=== PATIENT | female | born 1945 | race Caucasian/White ===

== ENCOUNTER 2020-08-11 17:11 | Emergency (ER) | payer MEDICARE, BC, SELFPAY ==
[2020-08-11 18:08] VITALS: BP 136/78; PULSE 88; RESP 19; TEMP 36.8; O2SAT 99; BMI 29.6
--- NOTE | 2020-08-11 18:47 | HMH.EDUTC ---
[facility] Disposition Clinical Impression: Laceration Disposition: Home, Self-Care Condition on Discharge: Good Instructions: How to Care for a Laceration After Repair, Laceration Repair, DI for Laceration Repair -- Simple Additional Instructions: Suture instructions: You have required stitches today. Please read the following instructions so you know how to care for them: 1. Keep wound area dry for the first 24 hours. 2 May clean gently with mild soap and water, after 48 hours to prevent crusting over suture knots. 3. You may shower if your provider gives permission but do not take a bath until the skin is healed.. 4. Never leave a wet dressing or Band-Aid on your stitches as this allows bacteria to reach the area and may cause infection. Band-aids can cause the wound to sweat and not recommended to wear for long periods of time Watch for signs of infection: Increasing redness, tenderness or warmth around the suture site Unusual swelling around the site Appearance of pus around each suture or any red streaks Fever If you develop any of the above signs or symptoms of infection, Follow up with Family Physician immediately 5. Suture removal in _7-10___days 6. Return to [facility] or follow up with family doctor for removal. This can be done by any medical provider during regular hours on Thursday through Thursday, by appointment Referrals: Nathan Barth MD [Primary Care Provider] - As needed Time of Disposition: 18:52 Medical Decision Making - Ernesto Inquiry Pt receiving controlled substance: No Ernesto was queried for this patient: No Vital Signs: 08/11/20 18:08 Temperature 98.2 F Temperature Source Oral Pulse Rate [Right] 88 Respiratory Rate 19 Blood Pressure [Right Arm] 136/78 Blood Pressure Mean [Right Arm] 97 Blood Pressure Source [Right Arm] Automatic Cuff 02 Sat by Pulse Oximetry 99 Orders (Tests/Meds): ED MEDICATIONS Discontinued Medications Generic Name Dose Route Start Last Admin Trade Name Freq PRN Reason Stop Dose Admin Lidocaine HCl 5 ml 08/11/20 18:35 08/11/20 18:36 Lidocaine 1% 5ml Pf Vial IJ 08/11/20 18:36 5 ml ONCE ONE Administration Tetanus/Reduced Diphtheria/Acell Pertussis 0.5 ml 08/11/20 18:32 08/11/20 18:40 Tet/Diphth/Pert-Adult 0.5ml Syringe IM 08/11/20 18:33 0.5 ml .ONCE ONE Administration [facility] HPI - General Stated complaint: AO [id number] lac L Hand Time Seen by Provider: 08/11/20 18:30 Mode of Arrival: Ambulatory Source of Information: Patient Limitations: No Limitations Description of Symptoms (Recalled from Triage Doc. by RN): pt has a lac on her L hand between the base of her thumb and index finger. the lac was caused by trimming arlene while tending to her bushes. HEENT Symptoms (Recalled from RN notes): No Resp Symptoms (Recalled from RN notes): No Skin Symptoms (Recalled from RN notes): Yes (L hand superficial lac) MS Symptoms (Recalled from RN notes): No Functional Status (Recalled from RN notes): na - History of Present Illness Provider Complaint: Patient state that she was trimming bushes at home when she accidently cut herself on the base of her left thumb just above her wrist State that her daughter looked at it and thought it may need stiches so she came in - Related Data Home Medications Medication Instructions Recorded Confirmed azelastine-fluticasone 137 mcg-50 1 spray INTRANASAL BID 02/05/19 02/05/19 mcg/spray nasal spray montelukast 10 mg tablet 10 mg PO QPM 02/05/19 02/05/19 Previous Rx's Medication Instructions Recorded lelaydtvfzcvncv-heyvzuuvwcqoafa-BP 10 ml PO Q4-6H PRN #220 ml 02/05/19 2 mg-30 mg-10 mg/5 mL oral syrup methylprednisolone 4 mg tablets in See Rx Instructions PO PER PKG DIR 02/05/19 a dose pack #21 tab levoFLOXacin [Levaquin 500mg 500 mg PO DAILY #7 tab 06/26/19 tab] Allergies Allergy/AdvReac Type Severity Reaction Status Date / Time amoxicillin [AMOXICILLIN] Allergy Mild Verified
[2020-08-11 19:40] VITALS: BP 000/00; PULSE 0; RESP 19; TEMP 37
== END 2020-08-11 19:40 | disposition home or self-care (01) ==
PROVIDERS: Emergency Provider Nurse Practitioner; PCP Family Medicine
DX: S61.412A Laceration without foreign body of left hand, initial encounter (principal); W27.1XXA Contact with garden tool, initial encounter; Y92.017 Garden or yard in single-family (private) house as the place of occurrence of the external cause; Z23 Encounter for immunization
CPT/HCPCS: 12001; G0463; 90715; 99202

== ENCOUNTER → 2021-02-20 15:08 | Outpatient (CLI) | payer MEDICARE, BC, SELFPAY ==
--- NOTE | 2021-02-20 15:14 | XR_ITS ---
PROCEDURE: XR HAND LT MIN 3V CLINICAL INDICATION: PAIN IN LT THUMB COMPARISON: No exams were available for comparison FINDINGS: No fracture or dislocation. No lytic or blastic change. There is normal mineralization. Minimal osteoarthritic change at the 1st carpal metacarpal junction and at the interphalangeal joint of the thumb Other findings:None. IMPRESSION: Minimal osteoarthritic changes Dictated by: Juice Schuler MD 02/20/2021 16:28 Juice Schuler MD in [place] 02/20/2021 16:28
--- NOTE | 2021-02-20 15:14 | XR_ITS ---
PROCEDURE: XR FINGER LT MIN 2V CLINICAL INDICATION: PAIN IN LT THUMB COMPARISON: No exams were available for comparison FINDINGS: No fracture or dislocation. No lytic or blastic change. There is normal mineralization. Minimal osteoarthritic changes of the interphalangeal joint. Mild osteoarthritis also at the 1st carpal metacarpal junction. Other findings:None. IMPRESSION: Mild osteoarthritic change Dictated by: Juice Schuler MD 02/20/2021 16:27 Juice Schuler MD in [place] 02/20/2021 16:27
== END ==
PROVIDERS: PCP Family Medicine; Visit Provider Family Medicine
DX: M79.645 Pain in left finger(s) (principal)
CPT/HCPCS: 73130; 73140

== ENCOUNTER 2021-03-29 08:24 | Emergency (ER) | payer MEDICARE, BC, SELFPAY ==
[2021-03-29 08:25] VITALS: BP 165/113; PULSE 83; RESP 20; TEMP 36.6; O2SAT 98; BMI 28.4
[2021-03-29 08:46] LABS: Microscopic, Urine URINE MICROSCOPIC (MICROSCOPIC)
--- NOTE | 2021-03-29 08:59 | HMH.EDGENADL ---
ED Disposition Clinical Impression: Hematuria Qualifiers: Hematuria type: unspecified type Qualified Code(s): R31.9 - Hematuria, unspecified Disposition: Home, Self-Care Condition on Discharge: Good Additional Instructions: Take Levaquin as prescribed. Call Dr. Stokes's office and make appointment to be seen within 1 week. Prescriptions: levoFLOXacin [Levaquin 500mg tab] 500 mg PO DAILY #7 tab Transmission Status: Pending to [facility] Referrals: Nathan Barth MD [Primary Care Provider] - - Critical Care Critical Care Time: No Attestation: On 03/29/21, the high probability of a clinically significant, sudden or life threatening deterioration of the following system(s) required my full and direct attention, intervention and personal management. The time I documented below is in addition to time spent performing reported procedures but includes the following listed in this critical care notation. Medical Decision Making - Medical Records Medical records reviewed: Yes: I reviewed the patient's medical records. MR Comment: Reviewed UTC note from visit 06/01/2020. Diagnosed with cystitis and hematuria and treated with Bactrim. Reviewed emergency department note from visit 06/25/2020. Diagnosed with cystitis. Noted to have hematuria at that time. Treated with Levaquin. CT scan of abdomen and pelvis showed signs of cystitis. Urine cultures from both of these visits were negative. - Ernesto Inquiry Pt receiving controlled substance: No Vital Signs: 03/29/21 08:25 Temperature 97.8 F Temperature Source Oral Pulse Rate [Radial] 83 Respiratory Rate 20 Blood Pressure [Right Arm] 165/113 H Blood Pressure Mean [Right Arm] 130 Blood Pressure Position [Right Arm] Sitting 02 Sat by Pulse Oximetry 98 Oxygen Delivery Method Room Air - Lab Data Lab Results 03/29/21 08:30: Urine Color Red, Urine Appearance Turbid, Urine pH 6.0, Ur Specific [place] 1.025, Urine Protein 3+, Urine Glucose (UA) Negative, Urine Ketones Negative, Urine Blood 3+, Urine Nitrate Negative, Urine Bilirubin Negative, Urine Urobilinogen 0.2, Ur Leukocyte Esterase Negative, Urine RBC Tntc, Ur Squamous Epith Cells 10-20 03/29/21 08:48: WBC 7.9, RBC 4.96, Hgb 14.0, Hct 44.7, MCV 90.0, MCH 28.1, MCHC 31.2 L, RDW 13.7, Plt Count 232, MPV 8.5, Neut % (Auto) 56.8, Lymph % (Auto) 33.6, [place] % (Auto) 5.1, Eos % (Auto) 3.0, Baso % (Auto) 1.5, Neut # (Auto) 4.5, Lymph # (Auto) 2.7, [place] # (Auto) 0.4, Eos # (Auto) 0.2, Baso # (Auto) 0.1 03/29/21 08:48: Sodium 141, Potassium 4.2, Chloride 105, Carbon Dioxide 28, Anion Gap 12.2, BUN 11, Creatinine 0.80, Estimated Creat Clear 59, Estimated GFR 70, Est GFR ( Amer) 84, Glucose 109 H, Calcium 9.6, Total Bilirubin 0.4, AST 33, ALT 16, Alkaline Phosphatase 106, Total Protein 8.0, Albumin 4.3, Globulin 3.7 H, Albumin/Globulin Ratio 1.2 Result diagrams: 03/29/21 08:48 03/29/21 08:48 Orders (Tests/Meds): ED MEDICATIONS Generic Name Dose Route Start Last Admin Trade Name Freq PRN Reason Stop Dose Admin Levofloxacin/Dextrose 750 mg in 150 mls @ 100 mls/hr 03/29/21 09:45 03/29/21 09:40 Levofloxacin 750mg/150ml Premix IV 04/12/21 09:44 100 mls/hr Q24H BERT Administration Discontinued Medications Generic Name Dose Route Start Last Admin Trade Name Freq PRN Reason Stop Dose Admin Sodium Chloride 1,000 mls @ 999 mls/hr 03/29/21 09:00 03/29/21 09:04 Sod Chlor 0.9% 1000ml Bag IV 03/29/21 10:00 999 mls/hr .Q1H1M BERT Administration Iopamidol 75 ml 03/29/21 09:59 03/29/21 10:00 Iopamidol-370 (76%);100ml Bottle IV 03/29/21 10:00 75 ml ONCE ONE Administration Sodium Chloride 10 ml 03/29/21 09:59 03/29/21 10:00 Sodium Chloride 0.9% 10ml Syr (Rad Only) IV 03/29/21 10:00 10 ml ONCE ONE Administration - CT Data CT Scan: Abdomen, Pelvis Time Received: 10:[address] Reviewed: Yes: I have viewed the radiologist's interpretation Findings Narrative: PROCEDURE
[2021-03-29 09:03] LABS: Appearance,Urine TURBID (Clear); Bilirubin,Urine Negative (Negative); Blood, Urine 3+ (Negative); Color,Urine RED (Yellow); Glucose,Urine (UA) Negative (Negative); Ketones,Urine Negative (Negative); Leukocyte Esterase,Urine Negative (Negative); Nitrate,Urine Negative (Negative); Protein,Urine 3+ (Negative); Specific Gravity, Urine 1.025 (1.005-1.030); Urobilinogen,Urine 0.2 EU/dl (0.2)
[2021-03-29 09:12] LABS: RBC,Urine TNTC #/hpf (0-3)
[2021-03-29 09:15] LABS: Chloride 105 mmol/L (98-107); Potassium 4.2 mmoL/L (3.5-5.1); Sodium 141 mmol/L (136-145)
[2021-03-29 09:17] LABS: Alanine Aminotransferase 16 U/L (12-78); Aspartate Amino Transferase 33 U/L (14-36); Blood Urea Nitrogen 11 mg/dl (7-17); Creatinine Clearance Estimated 59 mL/min (50-200); Estimated Glomerular Filt Rate 70 ml/min (>60); GFR (African American) 84 ML/MIN (>60)
[2021-03-29 09:18] LABS: Albumin Level 4.3 g/dl (3.5-5.0); Albumin/Globulin Ratio 1.2 (1.1-1.8); Alkaline Phosphatase 106 U/L (38-126); Anion Gap 12.2 mEq/L (5-15); Basophils # 0.1 K/mm3 (0-0.2); Basophils % 1.5 % (0.1-2.0); Bilirubin,Total 0.4 mg/dl (0.2-1.3); Calcium 9.6 mg/dl (8.4-10.2); Carbon Dioxide 28 mmol/L (22.0-30.0); Eosinophils # 0.2 K/mm3 (0.0-0.4); Globulin 3.7 g/dL (1.3-3.2); Glucose 109 mg/dl (74-100); Hematocrit 44.7 % (37.0-47.0); Lymphocytes # 2.7 K/mm3 (0.7-4.5); Lymphocytes % 33.6 % (10-50); Mean Corpuscular HGB Conc 31.2 g/dL (31.8-35.4); Mean Corpuscular Hemoglobin 28.1 pg (27.0-31.2); Mean Platelet Volume 8.5 fl (7.4-10.4); Monocytes # 0.4 K/mm3 (0.1-1.0); Monocytes % 5.1 % (1.7-9.3); Neutrophils # 4.5 K/mm3 (1.8-7.8); Neutrophils % 56.8 % (37.0-80.0); Platelet Count 232 K/mm3 (142-424); Red Blood Count 4.96 M/mm3 (4.20-5.40); Red Cell Distribution Width 13.7 % (11.5-17.5); White Blood Count 7.9 K/mm3 (4.8-10.8)
--- NOTE | 2021-03-29 09:30 | PC.NURSE ---
left message with OR staff for Dr. Stokes to return call to ER
--- NOTE | 2021-03-29 09:32 | PC.NURSE ---
on the phone with
--- NOTE | 2021-03-29 09:36 | CT_ITS ---
PROCEDURE: CT ABDOMEN PELVIS W CON CLINICAL INDICATION: hematuria COMPARISON: CT CT ABDOMEN PELVIS WO CON from 06/26/2019 TECHNIQUE: IV Contrast: 75ML Isovue 370 Oral Contrast None Axial images obtained with sagittal and coronal reformats. All CT scans at the facility use one or more dose reduction, viz: automated exposure control, ma/kV adjustment per patient size (including targeted exams where dose is matched to indication, i.e. head), or iterative reconstruction technique. FINDINGS: LOWER THORAX: No acute finding. Coronary artery calcifications. ABDOMEN & PELVIS: 5 mm hypodensity segment 7 of the liver nonspecific too small to categorize. Mild fatty liver. No radiopaque gallstones. The spleen and adrenal glands and pancreas have an unremarkable appearance. No renal or ureteral calculi. No hydronephrosis or renal mass. Unremarkable appendix. No intestinal obstruction or free air. There is colonic diverticulosis. No evidence of diverticulitis. There is some mild asymmetry with fullness of the soft tissues in the left para vaginal region. This is of uncertain clinical significance. Correlation with physical exam suggested. Unremarkable appearing urinary bladder. Small umbilical hernia containing fat. Degenerative changes are present involving the hips. IMPRESSION: 1. No acute finding. No evidence of renal or ureteral calculi 2. Small slight asymmetric increased soft tissue density in the left para vaginal region. This is of questionable clinical significance. Correlation with physical exam needed. Follow-up CT may confirm stability. Dictated by: Juice Schuler MD 03/29/2021 10:19 Juice Schuler MD in [place] 03/29/2021 10:19
[2021-03-29 10:56] VITALS: BP 155/77; PULSE 78; RESP 16; TEMP 36.6; O2SAT 98
== END 2021-03-29 10:58 | disposition home or self-care (01) ==
PROVIDERS: Emergency Provider Emergency Medicine; PCP Family Medicine
DX: N30.01 Acute cystitis with hematuria (principal); Z88.1 Allergy status to other antibiotic agents
CPT/HCPCS: 74177; 80053; 81001; 85025; 96365; 96367; 96375; 99283; J1956; Q9967

== ENCOUNTER → 2021-04-24 13:42 | Outpatient (CLI) | payer MEDICARE, BC, SELFPAY | PROVIDERS: PCP Family Medicine; Visit Provider Urology | DX: N39.0 Urinary tract infection, site not specified (principal); R31.9 Hematuria, unspecified; Z01.812 Encounter for preprocedural laboratory examination; Z11.52 Encounter for screening for COVID-19 | CPT/HCPCS: C9803; U0003; U0005 ==

== ENCOUNTER 2021-04-26 07:55 | Day surgery (SDC) | payer MEDICARE, BC, SELFPAY ==
[2021-04-23 14:59] VITALS: BMI 29.1
[2021-04-26 08:07] VITALS: BP 155/66; PULSE 93; RESP 18; TEMP 36.1; O2SAT 96
[2021-04-26 09:32] VITALS: BP 164/76; PULSE 73; RESP 16; TEMP 36.2; O2SAT 95
--- NOTE | 2021-04-26 13:00 | P.OP_ITS ---
Date of procedure: 04/26/21 Pre-op Diagnosis:: Gross hematuria Post-op Diagnosis:: Gross hematuria Procedure performed:: Cystoscopy Surgeon:: Mario Stokes MD Anesthesia: local Estimated blood loss (mL): 0 Clinical Note:: 76-year-old white female with the several month history of the intermittent gross hematuria. Cultures have been negative. CT scan unremarkable. She pre sents for cystoscopy and vaginal examination. Operative findings:: Bladder mucosa was normal. The bladder neck was very vascular and some frondular elements were present that the bladder neck. These did not bleed with instrumentation but looked like they could bleed easily. Operative note:: Patient taken to the operating suite after informed consent was obtained. On the stretcher she was placed in the frog-leg position and prepped and draped in the standard surgical fashion. 2% lidocaine placed into the urethra after 5 minutes the flexible cystoscope introduced into the urethral meatus and Passed into the bladder without difficulty and the bladder examined in a systematic fashion. There was no evidence of mucosal abnormalities, stones, diverticula, trabeculation. The ureteral orifices were in their normal anatomic position with clear efflux of urine. Scope was retroflexed showing no abnormalities around the bladder neck. At the bladder neck however there were some mucosal fronds in the proximal part of the urethra was very vascular. Instrumentation did not result in any obvious bleeding. The rest of the urethra was normal. Scope removed patient tolerated well. Vaginal examination was performed and there is no evidence of any suspicious abnormalities. The CT scan had shown a left paravaginal mass. We discussed the cystoscopy findings today and she was reassured there is no evidence of any suspicious abnormalities. I discussed that the intermittent bleeding could be from the frondular elements at the bladder neck. I asked her to return if her hematuria persists as you could be some ureteral origin and ureteroscopy under anesthesia would be indicated. If ureteroscopy was negative we could cauterize the frondular elements at the bladder neck. Condition: stable Disposition: same day Specimens:: None Complications:: None
== END 2021-04-26 09:43 | disposition home or self-care (01) ==
LOC: OUTP 07:57
PROVIDERS: PCP Family Medicine; Visit Provider Urology
DX: R31.0 Gross hematuria (principal); Z88.1 Allergy status to other antibiotic agents; Z88.8 Allergy status to other drugs, medicaments and biological substances; Z79.899 Other long term (current) drug therapy; M19.90 Unspecified osteoarthritis, unspecified site; Z82.49 Family history of ischemic heart disease and other diseases of the circulatory system; Z82.3 Family history of stroke
CPT/HCPCS: 52000

== ENCOUNTER 2024-02-12 15:10 | Outpatient (CLI) | payer MEDICARE, BC, SELFPAY ==
--- NOTE | 2024-02-12 15:17 | XR_ITS ---
PROCEDURE INFORMATION: Exam: XR Left Knee Exam date and time: 02/12/2024 3:20 PM Age: 78 years old Clinical indication: Pain; Knee; Left; Additional info: Pain since November TECHNIQUE: Imaging protocol: Radiologic exam of the left knee. Views: 3 views. COMPARISON: No relevant prior studies available. FINDINGS: Bones/joints: No acute fracture or dislocation. Mild medial compartment joint space narrowing and osteophyte formation. Sharpening of the medial tibial spine. Soft tissues: Normal. IMPRESSION: Mild medial compartment osteoarthritis.
== END 2024-02-12 23:59 | disposition home or self-care (01) ==
LOC: RAD 15:13
PROVIDERS: PCP Nurse Practitioner; Visit Provider Nurse Practitioner
DX: M25.562 Pain in left knee (principal)
CPT/HCPCS: 73562

== ENCOUNTER 2024-05-11 13:27 | Outpatient (CLI) | payer MEDICARE, BC, SELFPAY ==
--- NOTE | 2024-05-11 13:33 | CT_ITS ---
FINAL REPORT TECHNIQUE: Thin section axial images were obtained through the left lower extremity without contrast. Reconstruction images were obtained from the axial data. Exam was performed using dose reduction technique. CLINICAL HISTORY: LEFT KNEE PAIN COMPARISON: None FINDINGS: There is no acute fracture or dislocation. No acute osseous abnormality of the left knee is identified. There is mild degenerative joint disease. The quadriceps and patellar tendons appear intact. There is no significant joint effusion. The remaining soft tissues are without acute abnormality. IMPRESSION: No acute abnormality of the left knee. Consider MRI if clinical concern persists. Reviewed, Interpreted and Dictated by Marybeth Malave MD Transcribed by Rosette Donohue Authenticated and [facility]
== END 2024-05-11 23:59 | disposition home or self-care (01) ==
LOC: RAD 13:28
PROVIDERS: PCP Nurse Practitioner; Visit Provider Nurse Practitioner
DX: M25.562 Pain in left knee (principal)
CPT/HCPCS: 73700

== ENCOUNTER 2024-07-21 15:12 | Emergency (ER) | payer MEDICARE, SELFPAY ==
[2024-07-21] VITALS (8 sets, daily range): BP systolic 131–157; BP diastolic 76–83; PULSE 79–93; RESP 16–23; TEMP 36.6–36.8; O2SAT 91–95; BMI 25.0
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
[2024-07-21] MEDS: 0.9 % SODIUM CHLORIDE 50 ML VIAL IV ×2 (16:03)
[2024-07-21] MEDS: IOPAMIDOL-370 (76%);100ML BOTTLE 100 ML IV (16:03)
[2024-07-21] MEDS: SODIUM CHLORIDE 0.9% 10ML SYR (RAD ONLY) 10 ML IV ×2 (16:03→16:04)
[2024-07-21] MEDS: IOPAMIDOL-370 (76%);100ML BOTTLE 60 ML IV (16:04)
--- NOTE | 2024-07-21 16:13 | ECG_ITS ---
APPROVED REPORT Exam: Resting ECG HR:86 bpm ECG Measurements Heart Rate 86 AXES AR 197 P 69 QRSd 81 QRS 6 QT 369 T 72 QTc 413 Conclusion SINUS RHYTHM INFERIOR MYOCARDIAL INFARCTION , PROBABLY OLD [40+ ms Q WAVE AND/OR ST/T ABNORMALITY IN II/aVF] ABNORMAL ECG UNCONFIRMED REPORT Electronically signed by : Mann Langley, 07/21/2024 22:57:34
[2024-07-21] MEDS: FENTANYL 100MCG/2ML VIAL 50 MCG IV ×2 (16:19→18:46)
[2024-07-21] MEDS: LACTATED RINGERS 1000ML 1,000 ML 999 ML IV (16:19)
[2024-07-21] MEDS: ONDANSETRON 4MG/2ML VIAL 4 MG IV (16:19)
--- NOTE | 2024-07-21 16:19 | PC.NURSE ---
called lab and respitory on vbg sent
[2024-07-21 16:25] LABS: Basophils # 0.1 K/mm3 (0-0.2); Basophils % 0.6 % (0.1-2.0); Eosinophils # 0.1 Kmm3 (0.0-0.4); Eosinophils % 0.7 % (0.1-12.0); Hematocrit 35.1 % (37.0-47.0); Hemoglobin 11.2 g/dL (12.2-16.2); Lymphocytes # 2.7 K/mm3 (0.7-4.5); Lymphocytes % 20.3 % (10-50); Mean Corpuscular HGB Conc 31.9 g/dL (31.8-35.4); Mean Corpuscular Hemoglobin 27.9 pg (27.0-31.2); Mean Corpuscular Volume 87.3 fl (81-99); Mean Platelet Volume 10.3 fl (7.4-10.4); Monocytes # 0.7 K/mm3 (0.1-1.0); Monocytes % 5.4 % (1.7-9.3); Neutrophils # 9.4 K/mm3 (1.8-7.8); Neutrophils % 70.5 % (37.0-80.0); Nucleated Red Blood Cells # 0 10^3/uL; Nucleated Red Blood Cells % 0 %; Platelet Count 168 K/mm3 (142-424); Red Blood Count 4.02 M/mm3 (4.20-5.40); Red Cell Distribution Width 13.7 % (11.5-17.5); Red Cell Distribution Width-SD 44.3 fL; White Blood Count 13.3 K/mm3 (4.8-10.8)
[2024-07-21 16:26] LABS: Lactate Venous 1.5 mmol/L (0.4-2.0); VBG Base Excess 1.7 mmol/L (-2.4-2.3); VBG HCO3 26.6 mmol/L (23-30); VBG Oxygen Saturation 65.6 % (50-70); VBG PCO2 44.2 mmol/L (35-51); VBG PO2 33.7 mmol/L (28-40); VBG Total CO2 27.9 mmol/L (23-27)
[2024-07-21 16:53] LABS: Activated Partial Thrombo Time 26.2 seconds (22.8-30.6); INR 0.97 (0.9-1.1); Prothrombin Time 10.9 seconds (10.1-12.5)
[2024-07-21 16:55] LABS: Alanine Aminotransferase 23 U/L (12-78); Albumin Level 3.2 g/dl (3.5-5.0); Alkaline Phosphatase 87 U/L (38-126); Anion Gap 9.3 mEq/L (5-15); Aspartate Amino Transferase 48 U/L (14-36); Bilirubin,Total 0.5 mg/dl (0.2-1.3); Blood Urea Nitrogen 17 mg/dl (7-17); Calcium 9.2 mg/dl (8.4-10.2); Carbon Dioxide 28 mmol/L (22.0-30.0); Chloride 101 mmol/L (98-107); Creatine Kinase 767 U/L (30-135); Creatinine Clearance Estimated 47 mL/min (50-200); Estimated Glomerular Filt Rate 53 ml/min (>60); GFR (African American) 64 ML/MIN (>60); Globulin 3.1 g/dL (1.3-3.2); Glucose 92 mg/dl (74-100); Lactic Acid 1.1 mmol/L (0.7-2.1); Potassium 4.3 mmoL/L (3.5-5.1); Sodium 134 mmol/L (136-145); Total Protein,Serum 6.3 g/dl (6.3-8.2)
[2024-07-21 17:14] LABS: Troponin I < 0.01 ng/ml (0.00-0.034)
--- NOTE | 2024-07-21 17:48 | PC.NURSE ---
Called [facility] per Dr Langley to speak with them about transferring this pt to . [facility] advised that they would call us back.
--- NOTE | 2024-07-21 17:50 | PC.NURSE ---
Patients sister advised us that this pts son works at [employer] and if any decisions need to be made they he can make them. Her sons name is Tommy Coronado
--- NOTE | 2024-07-21 17:56 | PC.NURSE ---
Dr Melvin called back and is speaking with Dr Langley now and pt was accepted.
--- NOTE | 2024-07-21 18:39 | PC.NURSE ---
called report to Tila HOOKS at [facility] and per her they are gonna send a crew to come get her because her son works there with them.
--- NOTE | 2024-07-21 18:48 | PC.NURSE ---
Lab called asking for a 2nd troponin but Dr Langley states it is not needed. Lab notified of this
--- NOTE | 2024-07-21 19:09 | PC.NURSE ---
shift report given to wendi pierre
== END 2024-07-21 19:40 | disposition other institution (70) ==
PROVIDERS: Emergency Medicine; Emergency Provider Student in an Organized Health Care Education/Training Program; PCP Nurse Practitioner Family
DX: T79.7XXA Traumatic subcutaneous emphysema, initial encounter (principal); J93.9 Pneumothorax, unspecified; S22.079A Unspecified fracture of T9-T10 vertebra, initial encounter for closed fracture; R07.89 Other chest pain; S30.811A Abrasion of abdominal wall, initial encounter; S40.212A Abrasion of left shoulder, initial encounter; V03.00XA Pedestrian on foot injured in collision with car, pick-up truck or van in nontraffic accident, initial encounter
CPT/HCPCS: 36415; 70450; 70496; 70498; 71045; 71275; 72125; 72128; 72131; 72170; 72192; 74174; 80053; 82550; 82803; 83605; 84484; 85025; 85610; 85730; 86850; 93005; 96361; 96374; 96375; 96376; 99291; J2405; J3010; J7120; Q9967

== ENCOUNTER 2024-11-01 09:16 | Day surgery (SDC) | payer MEDICARE, OTHER, SELFPAY ==
[2024-10-25 11:15] VITALS: BMI 27.4
[2024-11-01 09:28] VITALS: BP 141/70; PULSE 81; RESP 18; TEMP 36.6; O2SAT 95
[2024-11-01] MEDS: LACTATED RINGERS 1000ML 1,000 ML 50 ML IV (10:02)
--- NOTE | 2024-11-01 10:05 | EXP.ANES.CKL ---
[facility] Disclaimer: The information contained in this section may have been updated after the patient was seen, as this information can be updated by other users. Medical History History of fracture of vertebra Sleep apnea History of COVID-19 Diverticulitis Acid reflux Hemangioma Cataract Surgical History Hx of colonoscopy History of dilation and curettage Hx of tonsillectomy History of carpal tunnel surgery Family History Son Pancreatic cancer Heart valve replaced Mother Stroke Father Stroke Heart attack Social History (Updated 11/01/24 @ 09:44 by Marge Knox RN) Smoking Status: Never smoker second hand exposure: No alcohol intake: never substance use type: denies use current occupational status: retired Travel in the last 8 weeks?: Inside the [facility] household members: none housing: house current occupational exposures/hazards: No caffeine: No Have you lived/traveled outside US in past 30 days?: No Contact w/someone who lives/traveled outside US past 30 days?: No Exposure to someone with infectious disease in past 14 days?: No Do you have a fever (greater than 100.4 F or 38 C)?: No Have you tested positive for COVID-19?: No Exposed to someone with COVID-19 in past 14 days?: No Do you have a sore throat?: No Do you have a cough?: No Do you have any weakness?: No Are you experiencing any nausea/vomitting?: No Do you have any diarrhea?: No Are you experiencing any unusual bleeding?: No Do you have any muscle aches/pain?: No Do you have any abdominal pain?: No Are you experiencing loss of taste or smell?: No [facility] Anesthesia Checklist Patient Identification Patient Identification: Arm Band Structural Data Admitted From: Home Planned Operative Procedure/s: Colonoscopy Consent for Planned Operative Procedure(s) Verified: Yes Verified Documents: Surgical Consent and History and Physical NPO Status Verified Time NPO: 04:00 (finished prep) Additional verifications Anesthesia Reactions: No Airway Assessment Mallampati Score:: Class II C-Spine Mobility Assessed: Yes TMJ Mobility Assessed: Yes Dentition: Good Dentition Neurological Assessment Level of Consciousness: Awake, Alert and Appropriate Anesthesia Plan Anesthesia Risk discussed: Yes Anesthesia Plan: Verified ASA Class: II Anesthesia Type: MAC
--- NOTE | 2024-11-01 10:19 | EXP.GEN.HP ---
HPI HPI HPI: This is an 79-year-old female who presents for colonoscopy. She has a history of colon polyps and states that her most recent colonoscopy was about 10 years ago . She believes about 3 polyps were removed . No melena. No bright red blood per rectum. No unexplained weight loss. [facility] Disclaimer: The information contained in this section may have been updated after the patient was seen, as this information can be updated by other users. Medical History (Updated 11/01/24 @ 10:20 by Otilio Chauhan MD) History of fracture of vertebra Sleep apnea History of COVID-19 Diverticulitis Acid reflux Hemangioma Cataract Surgical History Hx of colonoscopy History of dilation and curettage Hx of tonsillectomy History of carpal tunnel surgery Family History Heart valve replaced Son Pancreatic cancer Son Heart attack Father Stroke Mother Father Social History (Updated 11/01/24 @ 09:44 by Marge Knox RN) Smoking Status: Never smoker second hand exposure: No alcohol intake: never substance use type: denies use current occupational status: retired Travel in the last 8 weeks?: Inside the [place] household members: none housing: house current occupational exposures/hazards: No caffeine: No Have you lived/traveled outside US in past 30 days?: No Contact w/someone who lives/traveled outside US past 30 days?: No Exposure to someone with infectious disease in past 14 days?: No Do you have a fever (greater than 100.4 F or 38 C)?: No Have you tested positive for COVID-19?: No Exposed to someone with COVID-19 in past 14 days?: No Do you have a sore throat?: No Do you have a cough?: No Do you have any weakness?: No Are you experiencing any nausea/vomitting?: No Do you have any diarrhea?: No Are you experiencing any unusual bleeding?: No Do you have any muscle aches/pain?: No Do you have any abdominal pain?: No Are you experiencing loss of taste or smell?: No Other Medical History Have you received the Flu Vaccine for this season: Yes Have you received the Pneumonia Vaccine: Yes Review of Systems Review of Systems Review of systems:: pertinent systems reviewed and negative unless documented below Meds Home Medications and Allergies Home Medications ?Medication ?Instructions ?Recorded ?Confirmed ?Type azelastine 137 mcg-fluticasone 50 1 spray intranasal BID allergies 02/05/19 11/01/24 History mcg/spray nasal spray (Dymista) montelukast 10 mg tablet 10 mg PO QPM allergies 02/05/19 11/01/24 History (Singulair) cimetidine 200 mg tablet 200 mg PO BID GERD 04/23/21 11/01/24 History ascorbic acid (vitamin C) 2,000 mg 2,000 mg PO DAILY 10/25/24 11/01/24 History tablet,extended release calcium 600 mg capsule 1,500 mg PO DAILY 10/25/24 11/01/24 History cholecalciferol (vitamin D3) 125 125 mcg PO DAILY 10/25/24 11/01/24 History mcg (5,000 unit) tablet (Vitamin D3) zinc 15 mg tablet 15 mg PO DAILY 10/25/24 11/01/24 History New Prescriptions to Start Prescriptions: Allergies Allergy/AdvReac Type Severity Reaction Status Date / Time amoxicillin (AMOXICILLIN) Allergy Mild itching Verified 10/25/24 10:49 cefaclor (From CECLOR) Allergy Mild Hives Verified 10/25/24 10:49 betamethasone Allergy Flushing Verified 11/01/24 09:32 hydrocortisone (From Allergy Flushing Verified 11/01/24 09:32 Cortizone-10) Exam Data for Last 24 hours Vital signs and Labs for Last 24 Hours: Temp Pulse Resp BP Pulse Ox O2 Del Method 97.9 F 81 18 141/70 H 95 Room Air 11/01/24 09:28 11/01/24 09:28 11/01/24 09:28 11/01/24 09:28 11/01/24 09:28 11/01/24 09:28 Constitutional Constitutional: no acute distress *Routine HEENT Exam Head: Present normocephalic Eye: Present EOMI ENT: Present mucous membranes moist *Routine Neck Exam Neck: Present full ROM *Routine Respiratory Exam Respiratory: Absent respiratory distress *Routine Cardiovascular Exam Cardiovascular: Absent tachycardia *Routine Abdominal Exam Abdominal: Present soft *Routine Rectal Exam Rectal:: deferred *Routine Genitalia Exam Genitalia:: deferred *Routine Extremities Exam Extremities: Present full ROM *Routine Skin Exam Skin: Absent erythema *Routine Neurological Exam Neurological: Present alert Assessment and Plan *Assessment and plan (1) History of colon polyps: Status: Acute Category: Medical Code(s): Z86.0100 - Personal history of colon polyps, unspecified Plan: Colonoscopy today I have discussed the risks and benefits including, but not limited to: Bleeding Infection Damage to surrounding tissue Inherent risks of sedation The patient agrees to proceed.
--- NOTE | 2024-11-01 10:20 | P.PCN_ITS ---
Procedure: Date: 11/01/24 Patient Date of :: 1945 Procedure Performed:: Colonoscopy with polypectomy Indications:: History of colon polyps Performing Provider:: Otilio Chauhan MD Referring Provider:: . Sedation:: Monitored anesthesia care Procedure:: After informed consent was obtained the patient was taken to the endoscopy suite. Sedation ensued after the patient was transferred to the left lateral d ecubitus position. Pulse, blood pressure, and oxygen saturation were monitored throughout the procedure. Digital rectal exam revealed no significant abnormality. The colonoscope was placed in position. The entire colon was evaluated. The colonoscope was carefully removed and the patient was transferred to recovery in stable condition. Please see findings and specimens below for detail. Findings:: Bowel preparation fair Pandiverticulosis Profound spasticity/lack of relaxation Fairly severe sigmoid tortuosity Polyps (see specimens) Specimens:: Complex lobulated polyp at 65 cm (hot snare) Polyp at 50 cm (cold snare) Recommendations:: Timing of repeat colonoscopy is pending pathology will likely be around 1-2 years secondary to size/nature of polyps, spasticity/lack of relaxation, and tortuosity. The patient will likely be referred back to Dr. Gutierrez for repeat colonoscopy. Complications:: No immediate Estimated blood obtained (mL): 1 Colonoscopy Component Colonoscopy Component Was a colonoscopy performed during today's procedure?: Yes Recommended follow up colonoscopy of at least 10 years?: No If no, follow up colonoscopy recommended in ___ years?: (See above) Reason for not recommending >/= 10 yr follow-up interval?: (See above)
[2024-11-01 11:06] VITALS: BP 123/69; PULSE 79; RESP 18; TEMP 36.6; O2SAT 96
[2024-11-01 11:16] VITALS: BP 143/80; PULSE 79; RESP 18; O2SAT 97
[2024-11-01 11:26] VITALS: BP 154/81; PULSE 79; RESP 18; O2SAT 97
[2024-11-01 11:36] VITALS: BP 149/51; PULSE 79; RESP 18; TEMP 36.6; O2SAT 98
== END 2024-11-01 11:50 | disposition home or self-care (01) ==
PROVIDERS: PCP Nurse Practitioner; Visit Provider Surgery
PROC: 0DJD8ZZ Inspection of Lower Intestinal Tract, Via Natural or Artificial Opening Endoscopic (ICD-10-PCS; CPT 45385; principal; 2024-11-01 10:30)
DX: K57.30 Diverticulosis of large intestine without perforation or abscess without bleeding (principal); D12.6 Benign neoplasm of colon, unspecified; Z86.0100 Personal history of colon polyps, unspecified; Z88.1 Allergy status to other antibiotic agents; Z88.6 Allergy status to analgesic agent
CPT/HCPCS: 45385; J2003; J2704; J7120

== ENCOUNTER 2024-11-07 12:57 | Outpatient (CLI) | payer MEDICARE, OTHER, SELFPAY ==
--- OUTSIDE RECORDS SUMMARY | 2024-11-07 12:59 | XMS_ITS | Clinical Summary ---
Author Organization [facility] Address [address] [place] [address] Care Team Providers Care Brazer Resistance Name Role Phone Thania Willis APRN Primary Care Provider [phone] Allergies Active Allergy Reactions Criticality Noted Date Comments Amoxicillin Hives,Rash Medium 07/22/2024 Cefaclor Hives,Rash Medium 07/22/2024 Penicillins Hives,Rash Medium 07/22/2024 Medications cholecalciferol (Vitamin D-3) 50 MCG (2000 UT) capsule Take 1 capsule by mouth daily. Active zinc sulfate (Zincate) 220 (50 Zn) MG capsule Take 1 capsule by mouth daily. Active montelukast (Singulair) 10 MG tablet Take 1 tablet by mouth nightly. Active calcium carbonate (Os-Nagi) 1250 (500 Ca) MG tablet Take 1 tablet by mouth daily. Active Azelastine-Flut icasone (Dymista) 137-50 MCG/ACT suspension Administer 1 spray into affected nostril(s) 2 times a day. Active meclizine (Antivert) 25 MG tablet Take 1 tablet by mouth 3 times a day as needed for dizziness. Active methocarbamol (Robaxin) 500 MG tablet Take 1 tablet by mouth every 8 hours for 15 days. Active Additional Information Patient not taking.Reported on 08/31/2024 scopolamine (Transderm-Scop ) 1 MG/3DAYS patch [address] 1 patch on the skin every 3rd day. Active pantoprazole (Protonix) 40 MG EC tablet Take 1 tablet by mouth daily before breakfast. Do not crush, chew, or split. Active oxyCODONE (Roxicodone) 5 MG immediate release tablet Take 1 tablet by mouth every 4 hours as needed. Active acetaminophen (Tylenol 8 Hour) 650 MG ER tablet Take 1 tablet by mouth every 8 hours as needed for mild pain. Do not crush, chew, or split. Active Active Problems Problem Noted Date Diagnosed Date Superficial venous thrombosis of arm, right 06/29 Overview (07/25/2024): -Per US; The cephalic vein at the level of the antecubital fossa, is dilated and noncompressible with hypoechoic thrombus -Apply warm compresses to Right AC T10 vertebral fracture 07/21/2024 Overview (07/24/2024): -Spine consulted -MRI T/L spine -No surgical intervention or bracing required Pneumothorax 07/21/2024 Overview (07/22/2024): - MMPC - Pulmonary toileting, IS Hemorrhage of pelvic artery 07/21/2024 Overview (07/24/2024): -IR consulted -Serial H/H- stable, dc'd 07/23 Critical polytrauma 07/21/2024 Overview (07/22/2024): - Admit to SGT4 Hypoxia 07/21/2024 Overview (07/22/2024): - Supplemental oxygen via NC, wean oxygen as able, pulmonary toileting Osteopenia 07/21/2024 Overview (07/22/2024): - Incidental finding, follow up with PCP Primary osteoarthritis of right hip 07/21/2024 Overview (07/22/2024): - Incidental finding, follow up with PCP Encounters Date Type Department Care Team Description 08/31/2024 12:40 PM EDT Office Visit [place] [facility] [address], [address] [place] [address] Katherin Robles, PA Other closed fracture of tenth thoracic vertebra, initial encounter ([facility]) (Primary Dx) 08/31/2024 12:19 PM EDT - 08/31/2024 11:59 PM EDT Hospital Encounter [facility] Radiology [address], [address] [place] [address] Other closed fracture of tenth thoracic vertebra, initial encounter ([facility]) Discharge Disposition: Home or Self Care 08/31/2024 Travel 08/17/2024 Patient Outreach POPULATION [address], [address] [place] [id number] Mili Yancey LPN Follow-up 08/12/2024 11:30 AM EDT Office Visit [facility] General Surgery [address], [address] [place] [address] Juan Bruce, ANN Pneumothorax, unspecified type (Primary Dx); Hemorrhage of pelvic artery 08/12/2024 10:35 AM EDT - 08/12/2024 11:59 PM EDT Hospital Encounter [facility] Radiology [address], [address] [place] [address] Pneumothorax, unspecified type Discharge Disposition: Home or Self Care 08/12/2024 Travel 08/09/2024 Telephone [facility] General Surgery [address], [address] [place] [address] Johana Sethi 08/08/2024 Patient Outreach [address], [address] [place] [address] Mili Yancey LPN TCM Call from Last 3 Months Social History Tobacco Use Types Packs/Day Years Used Date Smoking Tobacco: Never Smokeless Tobacco: Never Tobacco Cessation:Counseling Given: Not Answered Alcohol Use Standard Drinks/Week Comments Never 0 (1 standard drink = 0.6 oz pur e alcohol) Humiliation, Afraid, Rape, and Kick questionnair e Answer Date Recorded Within the last year, have y ou been afraid of your partner or ex-partner? No 07/22/2024 Within the last year, have y ou been humiliated or emotionally abused in other ways by your partner or ex-partner? No Within the last year, have y ou been kicked, hit, slapped, or otherwise physically hurt by your partner or ex-partner? No 07/22/2024 Within the last year, have y ou been raped or forced to have any kind of sexual activity by your partner or ex-partner? No 07/22/2024 PHQ-2 Answer Date Recorded Patient Health Questionnaire-2 Score 0 08/12/2024 Hunger Vital Sign Answer Date Recorded Within the past 12 months, y ou worried that your food would run out before you got the money to buy more. Never true 07/23/19 Within the past 12 months, t he food you bought just didn't last and you didn't have money to get more. Never true 07/22/2024 PRAPARE - Transportation Answer Date Re corded In the past 12 months, has l ack of transportation kept you from medical appointments or from getting medications? No 06/29 In the past 12 months, has l ack of transportation kept you from meetings, work, or from getting things needed for daily living? No 07/22/2024 PHQ-9 Answer Date Recorded Patient Health Questionnaire-9 Score 0 08/12/2024 Housing Stability Vital Sign Answer Axel e Recorded In the last 12 months, was t here a time when you were not able to pay the mortgage or rent on time? No 07/22/2024 Number of Times Moved in the Last Year Not on fi le 07/22/2024 At any time in the past 12 m [facility], were you homeless or living in a half-way (including now)? No 07/22/2024 Utilities Answer Date Recorded In the past 12 months has th e electric, gas, oil, or water company threatened to shut off services in your home? No 07/22/2024 Comments Unknown Sex and Gender Information Value Date Recorded Sex Assigned at Not on file Legal Sex Female 6:56 PM EDT Gender Identity Not on file Sexual Orientation Not on file Last Filed Vital Signs Vital Sign Reading Time Taken Comments Blood Pressure 121/83 08/31/2024 1:18 PM EDT Pulse 80 08/31/2024 1:18 PM EDT Temperature 36.5 C (97.7 F) 08/12/2024 10:58 AM EDT Respiratory Rate 18 07/26/2024 11:31 AM EDT Oxygen Saturation 97% 08/31/2024 1:18 PM EDT Inhaled Oxygen Concentration - - Weight 73.6 kg (162 lb 4.1 oz) 08/31/2024 1:18 P M EDT Height 161.5 cm (5' 3.58 ) 08/31/2024 1:18 PM ED T Body Mass Index 28.22 08/31/2024 1:18 PM EDT Plan of Treatment Upcoming Encounters Date Type Department Care Team (Late st Contact Info) Description 12/07/2024 11:20 AM EDT Office Visit [place] [facility] [address], [address] [place] [address] Katherin Robles, PA [address] [place] [address] 08/01/2025 11:00 AM EDT Ovarian Cancer Screening [facility] [address], [address] [place] [phone] Health Maintenance Due Date Last Done Comments [facility]-Bone Density Scan 1945 [facility]-Medicare Annual Wellness (AWV) 1945 [facility]-/Child/Adol SDOH Screenings 1945 [facility]-Pneumococcal Vaccine: 50 + Years (1 of 1 - PCV) 1993 [facility]-Zoster Vaccines (1 of 2) 1993 [facility]-RSV Vaccine: 60+ Years o r (1 - 1-dose 75+ series) 2018 [id number]-60 Vaccine (3 - 2023- season) 2023 05/23/2020, 04/25/2020 [facility]-Influenza Vaccine (#1) 2024 [facility]- SDOH Screenings 01/21/2025 [facility]-Adult SDOH Screenings 01/21/2025 07/22/2024 [facility]-Depression Screening 08/12/2025 025, 08/12/2024 [facility]-DTaP,Tdap,and Td Vaccine s (2 - Td or Tdap) 08/11/2030 08/11/2020 [facility]-Obesity Intervention Completed , 08/12/2024, 07/21/2024 HPV Vaccines Aged Out No longer eligi ble based on patient's age to complete this topic [facility]-HIB Vaccines Aged Out No longer e ligible based on patient's age to complete this topic [facility]-Hepatitis A Vaccines Aged Out No longer eligible based on patient's age to complete this topic [facility]-IPV Vaccines Aged Out No longer e ligible based on patient's age to complete this topic [facility]-Rotavirus Vaccines Aged Out No lo nger eligible based on patient's age to complete this topic Procedures Procedure Name Priority Date/Time Associated Diagnosis Comments XR THORACIC SPINE 2 VIEWS Routine 08/31/2024 1:03 PM EDT Other closed fracture of tenth thoracic vertebra, initial encounter ([facility]) XR CHEST 2 VIEWS Routine 08/12/2024 10:4 6 AM EDT Pneumothorax, unspecified type from Last 3 Months Results * XR Thoracic Spine 2 Views (08/31/2024 1:03 PM EDT) Anatomical Region Laterality Modality Spine, T-spine Digital Radiogra phy Impressions 08/31/2024 1:08 PM EDT Lower thoracic kyphosis with progressive loss of height of T8 and T9 with kyphosis centered at this level. Associated multilevel discogenic disease with disc space narrowing most pronounced at T8-9 and T7-8 CRITICAL RESULT: No. COMMUNICATION: Per this written report. Drafted by Rob Plata MD on 08/31/2024 1:07 PM Final report signed by Rob Plata MD on 08/31/2024 1:08 PM Narrative 08/31/2024 1:08 PM EDT CLINICAL INDICATION: T10 fracture TECHNIQUE: XR THORACIC SPINE 2 VIEWS COMPARISON: None. FINDINGS: The imaged chest is unremarkable. Overlying soft tissue obscures bone detail. There is kyphosis of the lower thoracic spine. There is progressive loss of height at T9 and likely T8 with marked is space narrowing. Marked T7-8 disc space narrowing. Procedure Note Rob Plata MD - 08/31/2024 CLINICAL INDICATION: T10 fracture TECHNIQUE: XR THORACIC SPINE 2 VIEWS COMPARISON: None. FINDINGS: The imaged chest is unremarkable. Overlying soft tissue obscures bonedetail. There is kyphosis of the lower thoracic spine. There isprogressive loss of height at T9 and likely T8 with marked is spacenarrowing. Marked T7-8 disc space narrowing. IMPRESSION: Lower thoracic kyphosis with progressive loss of height of T8 and T9 withkyphosis centered at this level. Associated multilevel discogenic diseasewith disc space narrowing most pronounced at T8-9 and T7-8 CRITICAL RESULT: No. COMMUNICATION: Per this written report. Drafted by Rob Plata MD on 08/31/2024 1:07 PM Final report signed by Rob Plata MD on 08/31/2024 1:08 PM Katherin LECHUGA IMG XR PROCEDURES Final Result * XR Chest 2 Views (08/12/2024 10:46 AM EDT) Anatomical Region Laterality Modality Chest Digital Radiogra phy Impressions 08/12/2024 12:34 PM EDT No acute findings. CRITICAL RESULT: No. COMMUNICATION: Per this written report. By electronically signing this report, I, the attending physician, attest that I have personally reviewed the images/data for the above examination(s) and agree with the final edited report. Drafted by ALEXANDR Draper on 08/12/2024 12:26 PM Final report signed by Te Bravo MD on 08/12/2024 12:34 PM Narrative 08/12/2024 12:34 PM EDT CLINICAL INDICATION: Follow up on small right pnx TECHNIQUE: XR CHEST 2 VIEWS COMPARISON: July 22, 2024 FINDINGS: No airspace consolidation. Cardiac silhouette and mediastinal contours are within normal limits.No pneumothorax or significant pleural effusion. Procedure Note Te Bravo MD - 08/12/2024 CLINICAL INDICATION: Follow up on small right pnx TECHNIQUE: XR CHEST 2 VIEWS COMPARISON: July 22, 2024 FINDINGS: No airspace consolidation. Cardiac silhouette and mediastinal contoursare within normal limits.No pneumothorax or significant pleuraleffusion. IMPRESSION: No acute findings. CRITICAL RESULT: No. COMMUNICATION: Per this written report. By electronically signing this report, I, the attending physician, attestthat I have personally reviewed the images/data for the aboveexamination(s) and agree with the final edited report. Drafted by ALEXANDR Draper on 08/12/2024 12:26 PM Final report signed by Te Bravo MD on 08/12/2024 12:34 PM us Juan Bruce DATA PROCESSING CONSULTANT IMG XR PROCEDURES Final Re sult from Last 3 Months Insurance MEDICARE [employer] Advance Directives * Full Code (Latest Code Status on File) Date Activated Date Inactivated Comments 07/21/2024 10:37 PM 07/26/2024 4:34 PM Question Answer Comments I have reviewed the capacity from the link above and, if needed, have updated to appropriate status: Yes Care Teams Brazer Resistance Relationship Specialty Start Date End Date Thania Willis APRN [address] [place] [address] PCP - General 08/12/24
--- NOTE | 2024-11-07 13:00 | XR_ITS ---
FINAL REPORT CLINICAL HISTORY: SCREENING COMPARISON: None FINDINGS: Using L1-4, the bone mineral density of the spine is 0.886 g/cm2, corresponding to T-score of -1.5, compatible with osteopenia. Using the left hip, the bone mineral density of the total hip is 0.733 g/cm2, corresponding to a T-score of -1.7, compatible with osteopenia. Using the right hip, the bone mineral density of the total hip is 0.674 g/cm2, corresponding to a T-score of -2.2, compatible with osteopenia. FRAX 10 year fracture risk is 6.3% for a hip fracture and 23% for a major osteoporotic fracture. NOTE: T-score: Standard deviation compared with peak bone mass of young adult mean. *Following the recommendations of the International Society of Bone densitometry, classification of hip BMD is based on the lower of two T-scores; total hip or femoral neck. IMPRESSION: Diminished bone mineral density consistent with osteopenia. Reviewed, Interpreted and Dictated by Isaac Brock MD Transcribed by Kristin Brock Authenticated and [facility]
== END 2024-11-07 23:59 | disposition home or self-care (01) ==
LOC: RAD 12:58
PROVIDERS: PCP Nurse Practitioner; Visit Provider Nurse Practitioner
DX: M85.88 Other specified disorders of bone density and structure, other site (principal)
CPT/HCPCS: 77080

== ENCOUNTER 2024-12-23 07:19 | Outpatient (CLI) | payer MEDICARE, OTHER, SELFPAY ==
--- NOTE | 2024-12-23 07:26 | CT_ITS ---
FINAL REPORT TECHNIQUE: Thin section axial images are obtained through the abdomen and pelvis after intravenous contrast. Reconstruction images were obtained from the axial data. Exam was performed using dose reduction techniques. This study was performed with techniques to keep radiation doses as low as reasonably achievable (ALARA). Individualized dose reduction techniques using automated exposure control or adjustment of mA and/or kV according to the patient's size were employed. CLINICAL HISTORY: BLOATING COMPARISON: 06/26/2019, report only FINDINGS: LUNG BASES: Lung bases are clear. Heart size is normal. LIVER: Homogeneous. No focal lesion. GALLBLADDER/BILIARY SYSTEM: Gallbladder is present. No gallstones. No biliary dilatation. SPLEEN: Unremarkable. PANCREAS: Unremarkable. ADRENALS: Unremarkable. KIDNEYS/URETERS/BLADDER: No hydronephrosis, renal mass, or renal stone. Unremarkable urinary bladder. GI TRACT: No small bowel obstruction or dilatation. There are a few nonspecific fluid-filled small bowel loops noted in the left abdomen, that may be secondary to enteritis. Normal appendix. No acute colon abnormality. Diverticulosis without acute inflammatory changes noted in the entire colon, but most prominently in the distal colon. PELVIC ORGANS: The uterus is present. LYMPH NODES/RETROPERITONEUM/MESENTERY: No lymphadenopathy. No abdominal aortic aneurysm. ABDOMINAL WALL: The abdominal wall is intact. FREE FLUID: No ascites. BONES: No acute osseous abnormality. IMPRESSION: Few nonspecific fluid-filled loops of small bowel, that may represent enteritis. Stevens diverticulosis without evidence of acute inflammatory change. Reviewed, Interpreted and Dictated by Marybeth Malave MD Transcribed by Rose Dailey Authenticated and [facility]
[2024-12-23 07:52] LABS: Blood Urea Nitrogen 16 mg/dl (7-17); Creatinine,Serum 0.90 mg/dl (0.52-1.04); Estimated Glomerular Filt Rate 60 ml/min (>60); GFR (African American) 73 ML/MIN (>60)
[2024-12-23] MEDS: IOPAMIDOL-370 (76%);100ML BOTTLE 75 ML IV (08:16)
== END 2024-12-23 23:59 | disposition home or self-care (01) ==
LOC: RAD 07:21
PROVIDERS: PCP Nurse Practitioner; Visit Provider Nurse Practitioner
DX: K57.50 Diverticulosis of both small and large intestine without perforation or abscess without bleeding (principal); R93.3 Abnormal findings on diagnostic imaging of other parts of digestive tract
CPT/HCPCS: 36415; 74177; 82565; 84520; Q9967

== ENCOUNTER 2024-12-28 09:32 | Outpatient (CLI) | payer MEDICARE, OTHER, SELFPAY ==
--- OUTSIDE RECORDS SUMMARY | 2024-12-07 11:16 | XMS_ITS | Encounter Summary ---
Author Organization Healthcare Address [address] [place] [address] Care Team Providers Care Water Engineer Name Role Phone Thania Willis APRN Primary Care Provider [phone] Katherin Robles PA Unavailable [phone] Encounter Details Date Type Department Care Team (Latest Contact Info) Description 12/07/2024 11:16 AM EDT - 12/07/2024 11:59 PM EDT Hospital Encounter [facility] [address], [address] [place] [address] Other closed fracture of tenth thoracic vertebra, initial encounter ([facility]) Discharge Disposition: Home or Self Care Social History Tobacco Use Types Packs/Day Years Used Date Smoking Tobacco: Never Smokeless Tobacco: Never Alcohol Use Standard Drinks/Week Comments Never 0 [...] any time in the past 12 m [facility], were you homeless or living in a [facility] (including now)? No 07/22/2024 Utilities Answer Date Recorded In the past 12 months has th e electric, gas, oil, or water company threatened to shut off services in your home? No 07/22/2024 Comments Unknown Sex and Gender Information Value Date Recorded Sex Assigned at Not on file Legal Sex Female 6:56 PM EDT Gender Identity Not on file Sexual Orientation Not on file documented as of this encounter Medications at Time of Discharge acetaminophen (Tylenol 8 Hour) 650 MG ER tablet Take 1 tablet by mouth every 8 hours as needed for mild pain. Do not crush, chew, or split. Azelastine-Fluti casone (Dymista) 137-50 MCG/ACT suspension Administer 1 spray into affected nostril(s) 2 times a day. calcium carbonate (Os-Nagi) 1250 (500 Ca) MG tablet Take 1 tablet by mouth daily. cholecalciferol (Vitamin D-3) 50 MCG (2000 UT) capsule Take 1 capsule by mouth daily. meclizine (Antivert) 25 MG tablet Take 1 tablet by mouth 3 times a day as needed for dizziness. montelukast (Singulair) 10 MG tablet Take 1 tablet by mouth nightly. oxyCODONE (Roxicodone) 5 MG immediate release tablet Take 1 tablet by mouth every 4 hours as needed. pantoprazole (Protonix) 40 MG EC tablet Take 1 tablet by mouth daily before breakfast. Do not crush, chew, or split. scopolamine (Transderm-Scop) 1 MG/3DAYS patch [address] 1 patch on the skin every 3rd day. zinc sulfate (Zincate) 220 (50 Zn) MG capsule Take 1 capsule by mouth daily. documented as of this encounter Plan of Treatment Upcoming Encounters Date Type Department Care Team (Late st Contact Info) Description 08/01/2025 11:00 AM EDT Ovarian Cancer Screening [facility] [address] [facility]rd [place] [address] documented as of this encounter Procedures Procedure Name Priority Date/Time Associated Diagnosis Comments XR SCOLIOSIS ENTIRE SPINE 2 OR 3 VIEWS Routine 12/07/2024 12:17 PM EDT Other closed fracture of tenth thoracic vertebra, initial encounter ([facility]) documented in this encounter Results * XR Scoliosis Entire Spine 2 or 3 Views (12/07/2024 12:17 PM EDT) Anatomical Region Laterality Modality Spine Digital Radiogra phy Impressions 12/07/2024 12:58 PM EDT Severe compression deformity at T9 with accentuated kyphosis, unchanged. CRITICAL RESULT: No. COMMUNICATION: Per this written report. Drafted by Chung Morgan MD on 12/07/2024 12:53 PM Final report signed by Chung Morgan MD on 12/07/2024 12:58 PM Narrative 12/07/2024 12:58 PM EDT CLINICAL INDICATION: scoliosis TECHNIQUE: XR SCOLIOSIS ENTIRE SPINE 2 OR 3 VIEWS COMPARISON: Radiograph dated August 31, 2024. FINDINGS: 2 views of the spine show patient is leaning slightly to the left with coronal balance projecting slightly to the left of midline. Sagittal balance is neutral. Prominent kyphosis. Moderate degenerative disc changes at C3-C4 to C5-C6 with straightening of normal cervical lordosis. Suboptimal evaluation of the upper and mid thoracic spine. Severe compression deformity is again appreciated at T9 with unchanged loss of vertebral body height. Severe degenerative disc changes at L5- S1. Moderate degenerative disc changes and grade 1 anterolisthesis at L4-L5. Procedure Note Chung Morgan MD - 12/07/2024 CLINICAL INDICATION: scoliosis TECHNIQUE: XR SCOLIOSIS ENTIRE SPINE 2 OR 3 VIEWS COMPARISON: Radiograph dated August 31, 2024. FINDINGS: 2 views of the spine show patient is leaning slightly to the left withcoronal balance projecting slightly to the left of midline. Sagittalbalance is neutral. Prominent kyphosis. Moderate degenerative disc changesat C3-C4 to C5-C6 with straightening of normal cervical lordosis.Suboptimal evaluation of the upper and mid thoracic spine. Severecompression deformity is again appreciated at T9 with unchanged loss ofvertebral body height. Severe degenerative disc changes at L5-S1. Moderatedegenerative disc changes and grade 1 anterolisthesis at L4-L5. IMPRESSION: Severe compression deformity at T9 with accentuated kyphosis, unchanged. CRITICAL RESULT: No. COMMUNICATION: Per this written report. Drafted by Chung Morgan MD on 12/07/2024 12:53 PM Final report signed by Chung Morgan MD on 12/07/2024 12:58 PM Katherin LECHUGA IMG XR PROCEDURES Final Result documented in this encounter Visit Diagnoses Diagnosis Other closed fracture of tenth thoracic vertebra, initial encounter ([facility]) documented in this encounter Additional Health Concerns Assessment Noted Time PHQ-9 Depression Total Score: 0 08/13/19 25 11:05 AM EDT A fall risk assessment has been complete d for the patient 12/07/2024 12:44 PM EDT A Body Mass Index follow-up plan has been documented for the patient 12/07/2024 3:29 PM EDT documented as of this encounter Care Teams Water Engineer Relationship Specialty Start Date End Date Thania Willis APRN [address] [place] [address] PCP - General 08/12/24 Katherin Robles PA [address] [place] [address] Physician Post Commander Neurosurgery 12/07/24 documented as of this encounter
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
--- OUTSIDE RECORDS SUMMARY | 2024-12-28 09:34 | XMS_ITS | Encounter Summary ---
Author Organization [facility] Address [address] [place] [address] Care Team Providers Care Floor Service Worker Spring Name Role Phone Thania Willis APRN Primary Care Provider [phone] Katherin Robles PA Unavailable [phone] Encounter Details Date Type Department Care Team (Latest Contact Info) Description 12/07/2024 Travel Social History Tobacco Use Types Packs/Day Years [...] any time in the past 12 m [facility], were you homeless or living in a penitentiary (including now)? No 07/22/2024 Utilities Answer Date [...] on file documented as of this encounter Plan of Treatment Upcoming Encounters Date Type Department Care Team (Late st Contact Info) Description 08/01/2025 11:00 AM EDT Ovarian Cancer Screening [facility] Gynecology [address] [facility], [address]rd [place] [address] documented as of this encounter Visit Diagnoses Not on filedocumented in this encounter Additional Health Concerns Assessment Noted Time PHQ-9 Depression Total Score: 0 08/13/19 11:05 AM EDT A fall risk assessment has been complete d for the patient 12/07/2024 12:44 PM EDT A Body Mass Index follow-up plan has been documented for the patient 12/07/2024 3:29 PM EDT documented as of this encounter Care Teams Floor Service Worker Spring Relationship Specialty Start Date End Date Thania Willis APRN [address] [place] [id number] PCP - General 08/12/24 Katherin Robles PA [address] [facility] [address] [place] [id number] Physician Safety Deposit Clerk Neurosurgery 12/07/24 documented as of this encounter
--- OUTSIDE RECORDS SUMMARY | 2024-12-28 09:34 | XMS_ITS | Clinical Summary ---
Author Organization [facility] Address [address] [place] [address] Care Team Providers Care Pharmacy Tech Name Role Phone Thania Willis APRN Primary Care Provider [phone] Katherin Robles Unavailable [phone] Allergies Active Allergy Reactions Criticality Noted Date Comments Amoxicillin Hives,Rash Medium 07/22/2024 Betamethasone Other - please docum ent in the comment field Low 11/01/2024 Cefaclor Hives,Rash Medium 07/22/2024 Hydrocortisone Rash Low 11/01/2024 Penicillins Hives,Rash Medium 07/22/2024 Medications cholecalciferol (Vitamin D-3) 50 MCG (1999 UT) capsule Take 1 capsule by mouth [...] Active Additional Information Patient not taking.Reported on 12/07/2024 scopolamine (Transderm-Scop ) 1 MG/3DAYS patch 72 [...] Encounters Date Type Department Care Team Description 12/07/2024 11:20 AM EDT [facility] Visit [facility] [address], [address] [place] [address] Katherin Robles PA Other closed fracture of tenth thoracic vertebra, initial encounter ([facility]) (Primary Dx) 12/07/2024 11:16 AM EDT - 12/07/2024 11:59 PM EDT [facility] [address], [address] [place] [address] Other closed fracture of tenth thoracic vertebra, initial encounter ([facility]) Discharge Disposition: Home or Self Care 12/07/2024 Travel from Last 3 Months Social History Tobacco [...] [facility] the [facility] were [facility] homeless or living in a [...] Pressure 140/82 12/07/2024 12:37 PM EDT Pulse 80 08/31/2024 1:18 PM EDT Temperature 36.5 C (97.7 F) 08/12/2024 10:58 AM EDT Respiratory Rate 18 07/26/2024 11:31 AM EDT Oxygen Saturation 97% 08/31/2024 1:18 PM EDT Inhaled Oxygen Concentration - - Weight 71.3 kg (157 lb 3 oz) 12/07/2024 12:37 PM EDT Height 161.5 cm (5' 3.58 ) 12/07/2024 12:37 PM E DT Body Mass Index 27.34 12/07/2024 12:37 PM EDT Plan of Treatment Upcoming Encounters Date Type Department Care Team (Late st Contact Info) Description 08/01/2025 11:00 AM EDT Ovarian Cancer Screening [facility] Gynecology [address] [facility] [place] [address] Health Maintenance Due Date Last Done Comments [facility]-Bone Density Scan 1945 [facility]-Medicare Annual Wellness (AWV) 1945 [facility]-/Child/Adol SDOH Screenings 1945 [facility]-Pneumococcal Vaccine: 50+ Years (1 of 1 - PCV) 1993 [facility]-Zoster Vaccines (1 of 2) 1993 [facility]-RSV Vaccine: 60+ Years or (1 - 1-dose 75+ series) 2018 [id number] Vaccine (3 - 2024- season) 2024 05/23/2020, 04/25/2020 [facility]-Influenza Vaccine (#1) 2024 [facility]- SDOH Screenings 01/21/2025 [facility]-Adult SDOH Screenings 01/21/2025 07/22/2024 [facility]-Depression Screening 08/12/2025 08/12/2024, 07/28 [facility]-DTaP,Tdap,and Td Vaccines (2 - Td or Tdap) 08/11/2030 08/11/2020 [facility]-Obesity Intervention Completed 025, 08/31/2024, 08/12/2024, Additional history exists HPV Vaccines Aged Out No longer eligi [...] fracture of tenth thoracic vertebra, initial encounter ([facility]) from Last 3 Months Results * XR Scoliosis Entire Spine 2 [...] Katherin LECHUGA IMG XR PROCEDURES Final Result from Last 3 [place] [address] [employer] [id number] [facility] [employer] Advance Directives * Full Code (Latest Code Status on File) Date Activated Date Inactivated Comments 07/21/2024 10:37 PM 07/26/2024 4:34 PM Question Answer Comments I have reviewed the capacity from the link above and, if needed, have updated to appropriate status: Yes Care Teams Pharmacy Tech Relationship Specialty Start Date End Date Thania Willis APRN [facility] [place] [address] PCP - General 08/12/24 Katherin Robles PA [address] [address] Physician Adoption Agent Neurosurgery 12/07/24
[2024-12-30 22:25] LABS: Pancreatic Elastase, Fecal >800 (>200)
== END 2024-12-28 23:59 | disposition home or self-care (01) ==
LOC: LAB 09:32
PROVIDERS: PCP Nurse Practitioner; Visit Provider Nurse Practitioner Family
DX: R14.0 Abdominal distension (gaseous) (principal)
CPT/HCPCS: 82653